=== PATIENT | male | born 1985 | race Caucasian/White ===

== ENCOUNTER 2021-05-07 01:48 | Emergency (ER) | payer OTHER ==
[2021-05-07 03:07] LABS: HEMOGLOBIN 14.4 gm/dl (14.0-17.5); RED BLOOD COUNT 5.03 M/UL (4.20-5.50); WHITE BLOOD COUNT 9.9 K/UL (4.5-11.0)
[2021-05-07 03:33] LABS: BUN/CREATININE RATIO 17 (0-10)
[2021-05-07] MEDS ORDERED: ZOFRAN ODT 4 MG4 MG PO (05:19)
[2021-05-07] MEDS ORDERED: TORADOL 10 MG T10 MG PO (05:19)
[2021-05-07] MEDS ORDERED: FLOMAX 0.4 MG0.4 MG PO (05:19)
== END 2021-05-07 05:30 | disposition home or self-care (01) ==
LOC: ER1 01:48
PROVIDERS: Physician Assistant
DX: N13.2 Hydronephrosis with renal and ureteral calculous obstruction (principal)
CPT/HCPCS: 80053; 81001; 83690; 85025; 87086; 96372; 99284; J1885; Q9967